=== PATIENT | male | born 1995 | race Caucasian/White ===

== ENCOUNTER 2020-09-17 21:34 | Emergency (ER) | payer MEDICAID ==
[~2020-09-17] VITALS: Ht 132.1 cm; Wt 48.0 kg
[2020-09-17 21:35] VITALS: BP 143/88
[2020-09-17] MEDS ORDERED: IBUP100S65 PO (21:49)
[2020-09-18] MEDS ORDERED: CLINDAMYCIN PED SUSP POWDER 75 MG/5 ML 100 ML BTL PO ONE (00:10)
[2020-09-18] MEDS ORDERED: IBUPROFEN 100 MG/5 ML SUSP UDC DYE FREE PO ONE (00:10)
[2020-09-18] MEDS ORDERED: IBUP100S57 PO (00:16)
[2020-09-18] MEDS ORDERED: CLIN1SOL24 PO (00:16)
[2020-09-18] MEDS ORDERED: ACET160L16 PO (00:16)
[2020-09-18] MEDS ORDERED: MAGICMW SSP (00:17)
== END 2020-09-18 01:06 | disposition home or self-care (01) ==
LOC: M ED 21:34 → EDBD 21:34 → M ED 09-18 01:06
DX: K02.9 Dental caries, unspecified (principal); R59.1 Generalized enlarged lymph nodes; Z88.0 Allergy status to penicillin; Z91.018 Allergy to other foods; F17.210 Nicotine dependence, cigarettes, uncomplicated